=== PATIENT | female | born 1960 | race Two or more races ===

== ENCOUNTER → 2018-02-17 | Outpatient (CLI) | payer BC ==
[~2018-02-17] MED LIST: ASC500 PO; ESCI20TA38 PO; FEXO180T74 PO; METF-420 PO; SPIR25TA78 PO
--- NOTE | 2018-02-25 13:15 | RADIOLOGY IMAGING REPORT ---
[place] [facility] [place] NAME: KAITLYN EMERSON : [id number] MR: [id number] V: [id number] EXAM DATE: [id number] ORDERING PHYSICIAN: ANJALI GLEASON TECHNOLOGIST: Vi Romero PROCEDURE:BILATERAL DIGITAL SCREENING MAMMOGRAM WITH CAD ASSISTED INTERPRETATION & 3D TOMOSYNTHESIS COMPARISON:Prior mammograms 12/13/08, 11/10/05, 01/30/04. INDICATIONS:screening FINDINGS: The breasts have mostly fatty density with residual islands of glandular tissue in the lateral aspect of each breast. No concerning mass or architectural distortion. There are groups of calcifications in the deep Left breast in the MLO view only at or just below the nipple level. These were not visible on comparison images. These are somewhat course but indeterminate with this exam. DIAGNOSTIC CATEGORY 0--INCOMPLETE: NEED ADDITIONAL IMAGING EVALUATION. RECOMMENDATIONS: ADDITIONAL MAMMOGRAPHIC VIEWS REQUIRED: LEFT BREAST. MAGNIFICATION VIEWS OF THE CALCIFICATIONS VISUALIZED IN THE MLO PROJECTION. THE EXAM SHOULD START WITH AN MLO VIEW TO LOCALIZE THE CALCIFICATIONS FOR MLO MAGNIFICATION IMAGING AND ALSO TO HELP DETERMINE IF MEDIALLY OR LATERAL EXAGGERATED CC IMAGING SHOULD BE OBTAINED TO IMAGE THE CALCIFICATIONS IN ANOTHER PROJECTION. IMPRESSION: BIRADS 0: Incomplete. Dictated by: Mohsen Lacey on 02/18/2018 at 15:59 Transcribed by: ANA on 02/21/2018 at 8:36 Approved by: Thomas Mcgrath on 02/25/2018 at 13:14 [facility]
== END ==
LOC: MAMO 01:14
PROVIDERS: ATTEND Nurse Practitioner Family
DX: Z12.31 Encounter for screening mammogram for malignant neoplasm of breast (principal); R92.8 Other abnormal and inconclusive findings on diagnostic imaging of breast
CPT/HCPCS: 77063; 77067

== ENCOUNTER → 2018-03-28 | Outpatient (CLI) | payer BC, OTHER ==
--- NOTE | 2018-03-28 16:08 | RADIOLOGY IMAGING REPORT ---
[place] [facility] [place] NAME: KAITLYN EMERSON : [id number] MR: [id number] V: [id number] EXAM DATE: [id number] ORDERING PHYSICIAN: ANJALI GLEASON TECHNOLOGIST: Vi Romero PROCEDURE:LEFT DIGITAL DIAGNOSTIC MAMMOGRAM COMPARISON:Prior mammograms 12/13/2008, 02/17/18. INDICATIONS:Microcalcifications Left Posterior Breast Seen on Screening Mammograms FINDINGS: Scattered fibroglandular tissue. Within the posterior left outer breast just below the nipple line based on MLO view there is a group of punctate to small round microcalcifications. These correlate with the calcifications of interest on the screening mammograms. These are in a linear configuration on MLO view mimicking vascular calcifications however these do not appear to represent vascular calcifications based on MLO tomographic comparison and based on current cc magnification view. These are non-specific and may be benign however DCIS microcalcifications cannot be entirely excluded. I discussed the options with the patient as far as tissue sampling. We attempted to localize these microcalcifications to evaluate for potential utilization of stereotactic biopsy given posterior positioning of the microcalcifications however the calcifications are not definitively localizable in two stereotactic projections and cannot be definitely biopsied by stereotactic approach. Wire localization of these microcalcifications with surgical biopsy should be considered for further characterization. RECOMMENDATIONS: IMPRESSION: BIRADS 4: Suspicious finding Biopsy of the left breast microcalcifications is recommended. As discussed above because of the posterior location of the microcalcifications stereotactic biopsy is not feasible. Wire localization with surgical resection should be considered for tissue characterization. Dictated by: Thomas Mcgrath on 03/28/2018 at 15:32 Transcribed by: ANA on 03/28/2018 at 15:59 Approved by: Thomas Mcgrath on 03/28/2018 at 16:07 [facility]
== END ==
LOC: MAMO 00:36
PROVIDERS: ATTEND Nurse Practitioner Family
DX: R92.0 Mammographic microcalcification found on diagnostic imaging of breast (principal)
CPT/HCPCS: 77061; 77065

== ENCOUNTER → 2018-04-26 | Outpatient (CLI) | payer BC, MEDICAID ==
[~2018-04-26] MED LIST changes: +DULO60CA7; +METF-450 PO; +POTA99TA6 PO; +TOLT2TAB PO
--- NOTE | 2018-04-26 12:37 | EKG ---
FACILITY: [facility] - [place] PATIENT NAME: KAITLYN EMERSON : [id number] MR: [id number] V: [id number] EXAM DATE: ORDERING PHYSICIAN: KEKE MCKEON TECHNOLOGIST: NAVEED Soto Reason : PRE-OP Blood Pressure : / mmHG Vent. Rate : 070 BPM Atrial Rate : 070 BPM P-R Int : 152 ms QRS Dur : 108 ms QT Int : 410 ms P-R-T Axes : 036 083 045 degrees QTc Int : 442 ms Normal sinus rhythm T inversion consistent with septal ischemia vs normal variant No previous ECGs available Confirmed by SARAH MORALES ([id number]) on 04/26/2018 8:45:10 PM Referred By: MIKE Confirmed By:SARAH MORALES
== END ==
LOC: RESP 09:59
PROVIDERS: ATTEND Surgery
DX: Z01.810 Encounter for preprocedural cardiovascular examination (principal)
CPT/HCPCS: 93005

== ENCOUNTER 2018-05-12 00:44 | Day surgery (SDC) | payer BC, MEDICAID ==
[~2018-05-12] VITALS: Ht 172.7 cm; Wt 103.0 kg
[2018-05-12] MEDS ORDERED: LIDOCAINE MPF 1% 5 ML VIAL ONE (08:15)
[2018-05-12] MEDS ORDERED: DEXAMETHASONE SOD 4 MG/ML VIAL ONE (08:15)
[2018-05-12] MEDS ORDERED: ONDANSETRON 4 MG/2 ML VIAL ONE (08:15)
[2018-05-12] MEDS ORDERED: PROPOFOL EMUL(*) 10MG/ML 20 ML 20 ML ONE (08:15)
[2018-05-12] MEDS ORDERED: fentaNYL CITR 100 MCG/2 ML AMP ONE ×4 (08:15→12:15)
[2018-05-12] MEDS ORDERED: KETAMINE HCL 200 MG/20 ML MDV ONE (08:16)
[2018-05-12 08:17] VITALS: BP 143/74
[2018-05-12] MEDS ORDERED: LIDOCAINE/SOD BICARB 8.4% SYR ID ONE (08:50)
[2018-05-12] MEDS ORDERED: MIDAZOLAM 2 MG/2 ML VIAL IVP PRN (08:50)
[2018-05-12] MEDS ORDERED: FAMOTIDINE 20 MG TAB PO ONE (08:50)
[2018-05-12] MEDS ORDERED: VANCOMYCIN(*) 1 GM VIAL 1 GM, VANCOMYCIN (*) 0.5 GM VIAL 0.5 GM in NS(*) 0.9% 250 ML BA... IVPB ONE (08:50)
[2018-05-12] MEDS ORDERED: NORMOSOL R SOLN(*) 1000 ML BAG 1,000 ML IV PRN (08:50)
[2018-05-12] MEDS ORDERED: ROPIVACAINE 0.5% 20 ML VIAL ONE (09:41)
[2018-05-12] MEDS ORDERED: DOCU-416 PO (11:28)
--- NOTE | 2018-05-12 11:31 | Short(Outpt) Discharge Summary ---
Discharge Summary Reason for Hosp/Final Diag: (1) Calcification of left breast on mammography Status: Chronic Hospital Course & Plan: Left breast wire-guided excision completed without problems. Departure Discharge to: Home, Self Care Discharge Instructions Home Meds Active Scripts Docusate Sodium (COLACE) 100 Mg Capsule, 1 CAP PO BID, #30 CAP 0 Refills TAKE WITH A FULL GLASS OF WATER Prov:KEKE MCKEON MD 05/12/18 Reported Medications Potassium Gluconate (POTASSIUM) 99 Mg Tablet, 99 MG PO DAILY 04/22/18 Tolterodine Tartrate (TOLTERODINE TARTRATE) 2 Mg Tablet, 4 MG PO DAILY 04/22/18 Duloxetine HCl (Duloxetine HCl) 60 Mg Capsule.dr, DAILY 04/22/18 Metformin Hcl (METFORMIN HCL) 500 Mg Tablet, 1 TAB PO QDAY, TAB 04/22/18 Follow up Referrals: General Surgery - 05/30/18 @ Surgery, General with KEKE MCKEON MD You have a follow up appointment scheduled with Dr. Mckeon on 05/30/18, at 11:15am. Diet: Regular Activity: As Tolerated Special Instructions: You may remove the white surgical dressing on 05/14/18, then you can shower. After showering, leave the incision open to air but leave the steristrips in place until they fall off on their own. Do not immerse the incision for 2 weeks. KEKE MCKEON MD May 12, 2018 11:31
--- NOTE | 2018-05-12 11:39 | Post Operative Progress Note ---
Post Operative Progress Note Date: May 12, 2018 Time: 11:31 Surgeon: Fam Dictation number: [id number] Anesthesia: LMA by Dr. Mann Pre-Op Diagnosis: Left breast calcifications Post-Op Diagnosis: ROSY Findings: Calcifications not seen in the specimen even after excising the tissue all around the wire and then excision of more breast tissue around where the distal tip of the wire was. Procedure(s): Wire guided left breast lesion excision Specimen Removed:(May be N/A): Left breast lesion Complications: None Fluids: See anesthesia record Estimated Blood Loss: Minimal Date OP Note Dictated: May 12, 2018 Time OP Note Dictated: 11:34 KEKE MCKEON MD May 12, 2018 11:39
[2018-05-12] MEDS ORDERED: PROMETHAZINE 25 MG/ML 1 ML AMP ONE (11:40)
[2018-05-12 12:33] VITALS: BP 120/76
[2018-05-12 13:02] VITALS: BP 119/77
[2018-05-12 13:30] VITALS: BP 117/74
[2018-05-12 13:49] VITALS: BP 137/81
[2018-05-12 13:51] VITALS: BP 132/80
[2018-05-12] MEDS ORDERED: VANCOMYCIN 1 GM ADDVIAL 1 GM in NS(*) 0.9% 250 ML ADDVAN BAG 250 ML IVPB ONE (14:20)
--- NOTE | 2018-05-12 15:23 | RADIOLOGY IMAGING REPORT ---
FACILITY: [facility] PATIENT NAME: KAITLYN EMERSON : [id number] MR: [id number] V: [id number] EXAM DATE: ORDERING PHYSICIAN: KEKE MCKEON TECHNOLOGIST: Vi Romero PROCEDURE: BREAST SPECIMEN COMPARISON: None. INDICATIONS: Wire Placement FINDINGS: Report included with Left Breast Localization of same date. CONCLUSION: Dictated by: Mohsen Lacey on 05/12/2018 at 14:16 Transcribed by: DEEP on 05/12/2018 at 15:02 Approved by: Mohsen Lacey on 05/12/2018 at 15:22 [facility]
--- NOTE | 2018-05-12 15:23 | RADIOLOGY IMAGING REPORT ---
FACILITY: [facility] PATIENT NAME: KAITLYN EMERSON : [id number] MR: [id number] V: [id number] EXAM DATE: ORDERING PHYSICIAN: KEKE MCKEON TECHNOLOGIST: Vi Romero PROCEDURE: NEEDLE LOCALIZATION LEFT BREAST Mammographically guided left breast needle localization & Left breast specimen radiograph. COMPARISON: Mammogram 03/28/18 INDICATIONS: Indeterminate deep Left breast calcifications. The calcifications are not in an area which is readily approachable for stereotactic biopsy. FINDINGS: I reviewed previous imaging. With the deep positioning of these calcifications, we were not able to visualize them for a lateral to medial approach even attempting another view today. Therefore, craniocaudal approach was utilized although I don't think that was necessarily optimal. The calcifications were visible. The skin was prepped with Chloraprep. A 9cm needle was advanced on the calcifications. Due to difficulty visualizing calcifications in the ML projection, an MLO view was used for near orthogonal imaging to adjust needle depth. The needle tip was not at the calcifications. I advanced the needle to the hub & repeat imaging showed that the needle tip was at the calcifications. The hookwire was then deployed advancing the hookwire past the needle tip. The needle was removed. Repeat imaging showed that the calcifications appear to be well positioned adjacent to the distal wire proximal to the tip. I reviewed the images prior to surgery with Dr Mckeon, the surgeon. After our review of the images, a lateral approach was selected for surgery. Subsequent tissue was provided from the OR. A specimen radiograph shows that the wire was contained within the tissue but the calcifications are not readily visible. I reviewed this with Dr Mckeon. He stated that he had dissected back against the chest wall. It was possible that the wire had pulled up somewhat surgery, & therefore some additional inferior tissue was resected. Unfortunately, radiograph of this also does not clearly show the calcifications of concern, although there may be a few scattered calcifications. I reviewed this with Dr Mckeon but it was decided that it does not seem to be worthwhile to attempt additional excision at that point. CONCLUSION: 1. Mammographically guided Left breast needle localization performed as above. 2. Subsequent specimen radiograph does not clearly show the calcifications of concern as discussed above. Dictated by: Mohsen Lacey on 05/12/2018 at 13:53 Transcribed by: DEEP on 05/12/2018 at 15:02 Approved by: Mohsen Lacey on 05/12/2018 at 15:22 [facility]
--- NOTE | 2018-05-12 19:57 | OPERATIVE REPORT 1 ---
EVENT DATE: May 12, 2018 SURGEON: Attila Otto MD ANESTHESIOLOGIST: Anthony Gill MD ANESTHESIA: LMA. PREOPERATIVE DIAGNOSIS Left breast calcification seen on mammogram. POSTOPERATIVE DIAGNOSIS Left breast calcification seen on mammogram. PROCEDURE PERFORMED Left breast wire-guided lesion excision. COMPLICATIONS None. CONDITION Stable. BLOOD LOSS Minimal. SPECIMENS 1. Left breast tissue with the wire within it. 2. Left breast further excised tissue. INDICATIONS This is a 58-year-old female who was referred to my office with calcifications in her left breast near the chest wall that were not amenable to either stereotactic or ultrasound-guided needle biopsy. It was recommended she have a wire-guided excision. She provided consent for this. DESCRIPTION OF PROCEDURE The patient was brought to the operating room and placed supine on the operating table. LMA anesthesia was administered, and the left breast was prepped and draped in a sterile fashion. Timeout was completed. I had previously reviewed the preop localization images with the radiologist. I palpated the skin and noted where the wire moved. I then made a debbie on the skin over where the lesion corresponded to the mammographic location of the lesion. I anesthetized the skin, made an incision in the skin, and dissected through the dermis and the subcutaneous fat. I then tracked my dissection over towards where the wire entered the skin and pulled the wire through into the wound. I dissected around the wire all the way down around the tip. This was all the way down on the muscle fascia. In fact, the muscle fascia was removed with the specimen. When this was completed, I packed the wound with a moist gauze, then placed the specimen on a grid, and walked it over to Radiology where we took a mammogram image of the specimen and wire. I reviewed this with the radiologist, but we could not see the calcifications in the specimen. I then went back to the operating room, scrubbed back in, and removed more tissue from around where the tip of the wire had been in case the wire had been withdrawn a little bit during retraction while the first specimen was being excised. I walked this sizable specimen back over to Radiology on a grid, and we took more images, but could not clearly see where the calcifications were in the specimen. There was really not any more tissue I could have removed without just blindly removing tissue, and I was all the way down on the muscle fascia and even into the axilla and serratus anterior, and so, I irrigated and dried the wound and closed the subcutaneous pocket with running 3-0 Vicryl sutures, and the skin was closed with 4-0 Monocryl running subcuticular suture. Skin was cleaned and dried, and Steri-Strips were applied, followed by sterile surgical dressing. Patient was awakened and LMA removed. She was transported to the recovery room in stable condition having tolerated the procedure without any apparent problems. We will see what the specimen shows, and if benign, we will repeat a mammogram in three months and see if the calcifications remain in her breast or if they are gone. If they are still in her breast, then we may get an MRI to further evaluate these versus another attempt at excising them or consideration of asking Radiology to perform an ultrasound or stereotactic biopsy if it is at all possible. MIRZA
== END 2018-05-12 12:33 | disposition home or self-care (01) ==
LOC: OR 00:44
PROVIDERS: ATTEND Surgery
DX: R92.1 Mammographic calcification found on diagnostic imaging of breast (principal)
CPT/HCPCS: 19125; 19283; 36416; 82948; 88305; J1100; J2001; J2250; J2405; J2550; J2704; J2795; J3010; J3370; J3490

== ENCOUNTER → 2018-08-25 | Outpatient (CLI) | payer OTHER, BC ==
[~2018-08-25] MED LIST changes: +DOCU-416 PO
--- NOTE | 2018-08-26 15:51 | RADIOLOGY IMAGING REPORT ---
FACILITY: [facility] PATIENT NAME: KAITLYN EMERSON : [id number] MR: [id number] V: [id number] EXAM DATE: [id number] ORDERING PHYSICIAN: KEKE MCKEON TECHNOLOGIST: Beatris Nation RDMS(ABD,OBGYN,BR),RVT PROCEDURE:US LEFT BREAST COMPARISON:Today's Left mammogram & prior mammogram of 03/28/18 INDICATIONS:FOLLOW UP FINDINGS: There is a complex fluid collection seen in the posterior third of the Left breast that extends from the approximate 12 o'clock position to the 4 o'clock position. This may represent a postoperative seroma. There is a 9x5mm echogenic well circumscribed ovoid structure within this collection which may represent organized hematoma. This may account for the new area of increased density in the upper outer quadrant of the Left breast posterior third. A 6 month follow up bilateral mammogram & a 6 month follow up Left breast Ultrasound recommended to evaluate for stability unless clinical findings warrant more immediate attention. DIAGNOSTIC CATEGORY 3--PROBABLY BENIGN FINDING. RECOMMENDATIONS: SIX MONTH FOLLOW-UP DIAGNOSTIC MAMMOGRAM: BILATERAL BREASTS. SIX MONTH FOLLOW-UP ULTRASOUND: LEFT BREAST. IMPRESSION: BIRADS 3: Probably benign finding. A 6 month follow up Left breast Ultrasound & a bilateral mammogram is recommended. Dictated by: Krystla Cast M.D. on 08/25/2018 at 17:15 Transcribed by: DEEP on 08/26/2018 at 15:20 Approved by: Krystal Cast M.D. on 08/26/2018 at 15:50 [facility]
--- NOTE | 2018-08-26 15:51 | RADIOLOGY IMAGING REPORT ---
FACILITY: [facility] PATIENT NAME: KAITLYN EMERSON : [id number] MR: [id number] V: [id number] EXAM DATE: [id number] ORDERING PHYSICIAN: KEKE MCKEON TECHNOLOGIST: Khadra Dover PROCEDURE:LEFT DIGITAL DIAGNOSTIC MAMMOGRAM WITH CAD ASSISTED INTERPRETATION & 3D TOMOSYNTHESIS COMPARISON:Today's Left breast Ultrasound & to the prior mammograms from 03/28/18, 02/17/18 INDICATIONS:6 month f/u FINDINGS: The Left breast is heterogeneously dense which can obscure small masses. In the upper outer quadrant of the Left breast in the posterior third there is a large irregular spiculated area of increased density which was not present previously. This is located just superior to the previously noted calcifications in the deep Left breast. This is in an operative site & may correspond to the irregular fluid collection seen on today's Left breast Ultrasound. This may represent a postoperative seroma or hematoma & fibrotic change. The previously noted grouping of calcifications in the deep central Left breast appear stable. DIAGNOSTIC CATEGORY 3--PROBABLY BENIGN FINDING. RECOMMENDATIONS: SIX MONTH FOLLOW-UP DIAGNOSTIC MAMMOGRAM: BILATERAL BREASTS. SIX MONTH FOLLOW-UP ULTRASOUND: LEFT BREAST. IMPRESSION: BIRADS 3: Probably benign finding. A 6 month bilateral mammogram & a 6 month follow up Left breast Ultrasound recommended as described above. Dictated by: Krystal Cast M.D. on 08/25/2018 at 17:17 Transcribed by: DEEP on 08/26/2018 at 14:54 Approved by: Krystal Cast M.D. on 08/26/2018 at 15:50 [facility]
== END ==
LOC: MAMO 00:40
PROVIDERS: ATTEND Surgery
DX: R92.1 Mammographic calcification found on diagnostic imaging of breast (principal); Z98.890 Other specified postprocedural states
CPT/HCPCS: 77061; 77065

== ENCOUNTER → 2018-09-12 | Outpatient (CLI) | payer OTHER ==
[2018-09-12 09:15] LABS: INR 1.03
== END ==
LOC: LAB 08:58
PROVIDERS: ATTEND Surgery
DX: R92.1 Mammographic calcification found on diagnostic imaging of breast (principal)
CPT/HCPCS: 36415; 85610

== ENCOUNTER → 2018-09-14 | Outpatient (CLI) | payer OTHER ==
[~2018-09-14] MED LIST changes: +NS 0.9% 250 ML BAG ONE
--- NOTE | 2018-09-14 17:25 | RADIOLOGY IMAGING REPORT ---
FACILITY: [facility] PATIENT NAME: KAITLYN EMERSON : [id number] MR: [id number] V: [id number] EXAM DATE: ORDERING PHYSICIAN: KEKE MCKEON TECHNOLOGIST: Vi Romero PROCEDURE: BREAST SPECIMEN COMPARISON: None. INDICATIONS: Post stereotactic Left breast biopsy. FINDINGS: There are numerous core samples from today's Left stereotactic breast biopsy. Increased density tissue is seen in multiple core samples. CONCLUSION: As above. Dictated by: Krystal Cast M.D. on 09/14/2018 at 10:00 Transcribed by: DEEP on 09/14/2018 at 10:16 Approved by: Krystal Cast M.D. on 09/14/2018 at 17:24 [facility]
--- NOTE | 2018-09-15 15:06 | RADIOLOGY IMAGING REPORT ---
FACILITY: [facility] PATIENT NAME: KAITLYN EMERSON : [id number] MR: [id number] V: [id number] EXAM DATE: [id number] ORDERING PHYSICIAN: KEKE MCKEON TECHNOLOGIST: Vi Romero PROCEDURE: STEREOTACTIC LEFT BREAST BIOPSY COMPARISON: None. INDICATIONS: Spiculated masslike area in the upper outer quadrant of the Left breast. FINDINGS: Informed consent was obtained. The patient was placed prone on the Stereotactic biopsy table. The area of increased density & spiculation in the upper outer quadrant of the Left breast was localized with digital stereo pair images. The Left breast was then prepped in the usual sterile fashion. Local anesthesia was accomplished with 1% Lidocaine. Deep anesthesia was accomplished with 1% Lidocaine with epinephrine. Utilizing mammographic guidance twelve 9 Gauge vacuum assisted core biopsies were obtained through the area in question in the upper outer quadrant of the Left breast. A subsequent radiograph did reveal areas of increased density in the multiple core samples. A biopsy clip was placed. The procedure was accomplished without apparent complication. CONCLUSION: Successful Stereotactic biopsy of the Left breast. Dictated by: Krystal Cast M.D. on 09/14/2018 at 16:00 Transcribed by: DEEP on 09/15/2018 at 15:01 Approved by: Krystal Cast M.D. on 09/15/2018 at 15:05 [facility]
--- NOTE | 2018-09-15 15:08 | RADIOLOGY IMAGING REPORT ---
FACILITY: [facility] [place] PATIENT NAME: KAITLYN EMERSON : [id number] MR: [id number] V: [id number] EXAM DATE: ORDERING PHYSICIAN: KEKE MCKEON TECHNOLOGIST: Vi Romero PROCEDURE:LEFT DIGITAL DIAGNOSTIC MAMMOGRAM COMPARISON:Prior mammogram of 08/25/18, 05/12/18, 03/28/18, 02/17/18 INDICATIONS:Post stereotactic biopsy for clip placement. FINDINGS: There is a stereotactic biopsy clip in the upper outer quadrant of the Left breast posterior third in the location of the previously noted spiculated masslike area. This area appears much smaller & may have been related to postoperative changes with seroma particularly in light of the previous Left breast Ultrasound findings. Samples were sent to the Laboratory for evaluation. Pathology results are pending. IMPRESSION: As above. Dictated by: Krystal Cast M.D. on 09/14/2018 at 15:59 Transcribed by: DEEP on 09/15/2018 at 15:05 Approved by: Krystal Cast M.D. on 09/15/2018 at 15:06 [facility]
== END ==
LOC: MAMO 09-09 14:28
PROVIDERS: ATTEND Surgery
DX: N60.82 Other benign mammary dysplasias of left breast (principal)
CPT/HCPCS: 19081; 77061; 77065; 88305; 88344; J7050